=== PATIENT | male | born 1935 | race Caucasian/White ===

== ENCOUNTER 2019-08-01 12:02 | Inpatient (IN) ==
[2019-08-01] MEDS ORDERED: *HR* HYDROcodone/Acet 5/325 mg TABLET PO PRN (15:58)
[2019-08-01] MEDS ORDERED: Acetaminophen 325 MG TABLET PO PRN (15:58)
[2019-08-01] MEDS ORDERED: *HR* Dextrose 50 % in Water (Vial) 50 ML VIAL IVP PRN (16:26)
[2019-08-01] MEDS ORDERED: Dextrose Gel 15 GM/37.5 ML TUBE PO PRN ×2 (16:26)
[2019-08-01] MEDS ORDERED: D5% in Water 1,000 ML IVC PRN (16:26)
[2019-08-01] MEDS ORDERED: INSULIN LISPRO 100 UNIT SQ SCH (16:30)
[2019-08-01] MEDS ORDERED: Insulin LISPRO 300 UNITS/3 ML VIAL SQ SCH (17:00)
[2019-08-01] MEDS: Insulin LISPRO 300 UNITS/3 ML VIAL SQ SCH ×2 (17:49)
[2019-08-01] MEDS: Insulin DETEMIR 100 UNIT/ML X5UNITS SQ SCH (22:07)
[2019-08-02 06:20] LABS: Basophils # 0.1 K/mcL (0.0-0.2); Basophils % 0.3 %; Eosinophils # 0.2 K/mcL (0.0-0.6); Eosinophils % 0.9 %; Hematocrit 26.1 % (37.5-50.1); Hemoglobin 8.8 g/dL (12.9-16.9); Lymphocytes # 0.9 K/mcL (0.6-4.6); Mean Corpuscular HGB Conc 33.7 g/dL (31.6-35.5); Mean Corpuscular Hemoglobin 29.7 pg (28.0-33.3); Mean Corpuscular Volume 88.2 fL (83.0-100.0); Monocytes # 0.9 K/mcL (0.0-1.3); Monocytes % 5.1 %; Neutrophils # 15.8 K/mcL (1.6-8.9); Platelet Count 437 K/mcL (140-400); Red Blood Count 2.96 M/mcL (4.19-5.50); Red Cell Distribution Width 13.8 % (11.5-14.5); Segmented Neutrophils % 87.7 %
[2019-08-02 06:28] LABS: INR 1.1; Prothrombin Time 12.3 Seconds (9.4-12.1)
[2019-08-02 06:31] LABS: Activated Partial Thrombo Time 26.2 Seconds (26.0-36.0)
[2019-08-02] MEDS: *HR* Enoxaparin 40 MG/0.4 ML SYRINGE SQ SCH (06:32)
[2019-08-02 06:43] LABS: Calcium 8.3 mg/dL (8.6-10.3); Potassium 4.4 mEq/L (3.5-5.1)
[2019-08-02] MEDS: Insulin LISPRO 300 UNITS/3 ML VIAL SQ SCH ×6 (08:52→16:33)
[2019-08-02] MEDS: Sennosides/Docusate Sodium TABLET PO PRN (08:53)
[2019-08-02] MEDS: amLODIPine 5 MG TABLET PO SCH (08:53)
[2019-08-02] MEDS: Aspirin Enteric Coated 81 MG Tablet PO SCH (08:53)
[2019-08-02] MEDS: Insulin DETEMIR 100 UNIT/ML X5UNITS SQ SCH ×2 (08:54→20:05)
[2019-08-02] MEDS: polyethylene glycoL 3350 17 GM POWD.PACK PO PRN (08:55)
[2019-08-02] MEDS ORDERED: Aspirin Enteric Coated 325 MG Tablet PO SCH (09:00)
[2019-08-03] MEDS: *HR* Enoxaparin 40 MG/0.4 ML SYRINGE SQ SCH (05:23)
[2019-08-03] MEDS: Insulin LISPRO 300 UNITS/3 ML VIAL SQ SCH ×6 (08:27→17:05)
[2019-08-03] MEDS: Insulin DETEMIR 100 UNIT/ML X5UNITS SQ SCH ×2 (08:27→20:44)
[2019-08-03] MEDS: amLODIPine 5 MG TABLET PO SCH (08:28)
[2019-08-03] MEDS: Aspirin Enteric Coated 81 MG Tablet PO SCH (08:28)
[2019-08-04] MEDS: *HR* Enoxaparin 40 MG/0.4 ML SYRINGE SQ SCH (05:42)
[2019-08-04] MEDS: Aspirin Enteric Coated 81 MG Tablet PO SCH (08:24)
[2019-08-04] MEDS: amLODIPine 5 MG TABLET PO SCH (08:24)
[2019-08-04] MEDS: Insulin LISPRO 300 UNITS/3 ML VIAL SQ SCH ×6 (08:24→16:23)
[2019-08-04] MEDS: Insulin DETEMIR 100 UNIT/ML X5UNITS SQ SCH ×2 (11:22→20:59)
[2019-08-05] MEDS: *HR* Enoxaparin 40 MG/0.4 ML SYRINGE SQ SCH (06:28)
[2019-08-05] MEDS: Insulin LISPRO 300 UNITS/3 ML VIAL SQ SCH ×6 (09:23→18:05)
[2019-08-05] MEDS: Insulin DETEMIR 100 UNIT/ML X5UNITS SQ SCH ×2 (09:28→20:22)
[2019-08-05] MEDS: Aspirin Enteric Coated 81 MG Tablet PO SCH (09:28)
[2019-08-05] MEDS: amLODIPine 5 MG TABLET PO SCH (09:28)
[2019-08-06] MEDS: *HR* Enoxaparin 40 MG/0.4 ML SYRINGE SQ SCH (05:26)
[2019-08-06 07:42] LABS: Hematocrit 26.7 % (37.5-50.1); Mean Corpuscular HGB Conc 33.7 g/dL (31.6-35.5); Mean Corpuscular Hemoglobin 29.5 pg (28.0-33.3); Mean Corpuscular Volume 87.5 fL (83.0-100.0); Mean Platelet Volume 9.6 fL (9.4-12.4); Platelet Count 600 K/mcL (140-400); Red Blood Count 3.05 M/mcL (4.19-5.50); Red Cell Distribution Width 13.4 % (11.5-14.5); White Blood Count 11.4 K/mcL (4.3-11.1)
[2019-08-06 09:13] LABS: BUN/Creatinine Ratio 27 (6-26); Blood Urea Nitrogen 34 mg/dL (8-23); Carbon Dioxide 25 mEq/L (23-29); Chloride 105 mEq/L (98-107); Glucose 95 mg/dL (70-105); Osmolality,Calculated 293 (280-300); Sodium 138 mEq/L (136-145); eGFR For African Americans > 60 (> 60); eGFR For Non-African Americans 55 (> 60)
[2019-08-06] MEDS: Insulin LISPRO 300 UNITS/3 ML VIAL SQ SCH ×6 (09:24→17:05)
[2019-08-06] MEDS: amLODIPine 5 MG TABLET PO SCH (09:25)
[2019-08-06] MEDS: Aspirin Enteric Coated 81 MG Tablet PO SCH (09:25)
[2019-08-06] MEDS: Insulin DETEMIR 100 UNIT/ML X5UNITS SQ SCH ×2 (09:26→20:22)
[2019-08-06 09:50] LABS: Calcium 8.3 mg/dL (8.6-10.3)
[2019-08-06] MEDS: Sennosides/Docusate Sodium TABLET PO PRN (23:04)
[2019-08-06] MEDS: polyethylene glycoL 3350 17 GM POWD.PACK PO PRN (23:05)
[2019-08-07] MEDS: *HR* Enoxaparin 40 MG/0.4 ML SYRINGE SQ SCH (05:33)
[2019-08-07] MEDS: amLODIPine 5 MG TABLET PO SCH (08:38)
[2019-08-07] MEDS: Aspirin Enteric Coated 81 MG Tablet PO SCH (08:38)
[2019-08-07] MEDS: Insulin LISPRO 300 UNITS/3 ML VIAL SQ SCH ×6 (08:39→16:58)
[2019-08-07] MEDS: Insulin DETEMIR 100 UNIT/ML X5UNITS SQ SCH ×2 (09:31→21:13)
[2019-08-08] MEDS: *HR* Enoxaparin 40 MG/0.4 ML SYRINGE SQ SCH (06:45)
[2019-08-08 08:12] LABS: Basophils % 0.3 %; Eosinophils # 0.3 K/mcL (0.0-0.6); Eosinophils % 3.8 %; Hemoglobin 8.8 g/dL (12.9-16.9); Immature Granulocytes % 0.3 % (0-4); Lymphocytes % 11.3 %; Mean Corpuscular HGB Conc 32.6 g/dL (31.6-35.5); Mean Corpuscular Volume 89.1 fL (83.0-100.0); Mean Platelet Volume 9.2 fL (9.4-12.4); Monocytes # 0.6 K/mcL (0.0-1.3); Monocytes % 7.3 %; Neutrophils # 6.7 K/mcL (1.6-8.9); Platelet Count 632 K/mcL (140-400); Red Blood Count 3.03 M/mcL (4.19-5.50); Red Cell Distribution Width 13.9 % (11.5-14.5); White Blood Count 8.7 K/mcL (4.3-11.1)
[2019-08-08 08:28] LABS: BUN/Creatinine Ratio 28 (6-26); Blood Urea Nitrogen 37 mg/dL (8-23); Calcium 8.2 mg/dL (8.6-10.3); Carbon Dioxide 26 mEq/L (23-29); Chloride 103 mEq/L (98-107); Glucose 115 mg/dL (70-105); Osmolality,Calculated 290 (280-300); Potassium 4.2 mEq/L (3.5-5.1); Sodium 135 mEq/L (136-145); eGFR For African Americans > 60 (> 60); eGFR For Non-African Americans 53 (> 60)
[2019-08-08] MEDS ORDERED: Bisacodyl 10 MG RECTAL SUPPOSITORY RC PRN (09:44)
[2019-08-08] MEDS: Insulin DETEMIR 100 UNIT/ML X5UNITS SQ SCH ×2 (09:46→20:19)
[2019-08-08] MEDS: Aspirin Enteric Coated 81 MG Tablet PO SCH (09:47)
[2019-08-08] MEDS: amLODIPine 5 MG TABLET PO SCH (09:47)
[2019-08-08] MEDS: Insulin LISPRO 300 UNITS/3 ML VIAL SQ SCH ×6 (10:31→17:16)
[2019-08-09] MEDS: *HR* Enoxaparin 40 MG/0.4 ML SYRINGE SQ SCH (06:46)
[2019-08-09] MEDS: Insulin LISPRO 300 UNITS/3 ML VIAL SQ SCH ×6 (09:09→17:29)
[2019-08-09] MEDS: Aspirin Enteric Coated 81 MG Tablet PO SCH (09:10)
[2019-08-09] MEDS: amLODIPine 5 MG TABLET PO SCH (09:10)
[2019-08-09] MEDS: Insulin DETEMIR 100 UNIT/ML X5UNITS SQ SCH ×2 (09:11→20:48)
[2019-08-10] MEDS: *HR* Enoxaparin 40 MG/0.4 ML SYRINGE SQ SCH (05:47)
[2019-08-10] MEDS: polyethylene glycoL 3350 17 GM POWD.PACK PO PRN (10:53)
[2019-08-10] MEDS: Sennosides/Docusate Sodium TABLET PO PRN (10:53)
[2019-08-10] MEDS: Aspirin Enteric Coated 81 MG Tablet PO SCH (10:53)
[2019-08-10] MEDS: amLODIPine 5 MG TABLET PO SCH (10:53)
[2019-08-10] MEDS: Insulin DETEMIR 100 UNIT/ML X5UNITS SQ SCH ×2 (10:54→20:07)
[2019-08-10] MEDS: Insulin LISPRO 300 UNITS/3 ML VIAL SQ SCH ×6 (10:54→17:09)
[2019-08-11] MEDS: *HR* Enoxaparin 40 MG/0.4 ML SYRINGE SQ SCH (05:37)
[2019-08-11] MEDS: Insulin DETEMIR 100 UNIT/ML X5UNITS SQ SCH ×2 (08:32→20:11)
[2019-08-11] MEDS: amLODIPine 5 MG TABLET PO SCH (08:33)
[2019-08-11] MEDS: Insulin LISPRO 300 UNITS/3 ML VIAL SQ SCH ×6 (08:33→16:47)
[2019-08-11] MEDS: Aspirin Enteric Coated 81 MG Tablet PO SCH (08:33)
[2019-08-12] MEDS: *HR* Enoxaparin 40 MG/0.4 ML SYRINGE SQ SCH (06:15)
[2019-08-12 08:39] LABS: Basophils # 0.1 K/mcL (0.0-0.2); Basophils % 0.6 %; Eosinophils # 0.2 K/mcL (0.0-0.6); Eosinophils % 2.4 %; Hematocrit 27.6 % (37.5-50.1); Hemoglobin 8.9 g/dL (12.9-16.9); Immature Granulocytes % 0.4 % (0-4); Lymphocytes % 10.4 %; Mean Corpuscular HGB Conc 32.2 g/dL (31.6-35.5); Mean Corpuscular Volume 89.9 fL (83.0-100.0); Mean Platelet Volume 9.2 fL (9.4-12.4); Monocytes # 0.4 K/mcL (0.0-1.3); Monocytes % 4.6 %; Neutrophils # 7.6 K/mcL (1.6-8.9); Platelet Count 591 K/mcL (140-400); Red Blood Count 3.07 M/mcL (4.19-5.50); Red Cell Distribution Width 14.3 % (11.5-14.5); Segmented Neutrophils % 81.6 %; White Blood Count 9.3 K/mcL (4.3-11.1)
[2019-08-12 08:54] LABS: Calcium 8.2 mg/dL (8.6-10.3); Potassium 4.4 mEq/L (3.5-5.1)
[2019-08-12] MEDS: amLODIPine 5 MG TABLET PO SCH (09:05)
[2019-08-12] MEDS: Aspirin Enteric Coated 81 MG Tablet PO SCH (09:05)
[2019-08-12] MEDS: Insulin LISPRO 300 UNITS/3 ML VIAL SQ SCH ×6 (09:06→17:14)
[2019-08-12] MEDS: Insulin DETEMIR 100 UNIT/ML X5UNITS SQ SCH ×2 (09:06→20:45)
[2019-08-13] MEDS: *HR* Enoxaparin 40 MG/0.4 ML SYRINGE SQ SCH (05:32)
[2019-08-13] MEDS: amLODIPine 5 MG TABLET PO SCH (08:39)
[2019-08-13] MEDS: Insulin DETEMIR 100 UNIT/ML X5UNITS SQ SCH ×2 (08:40→20:41)
[2019-08-13] MEDS: Insulin LISPRO 300 UNITS/3 ML VIAL SQ SCH ×6 (08:40→16:56)
[2019-08-13] MEDS: Aspirin Enteric Coated 81 MG Tablet PO SCH (08:40)
[2019-08-14] MEDS: *HR* Enoxaparin 40 MG/0.4 ML SYRINGE SQ SCH (05:42)
[2019-08-14] MEDS: hydrOXYzine pamoate 25 MG CAPSULE PO PRN (08:46)
[2019-08-14] MEDS: Aspirin Enteric Coated 81 MG Tablet PO SCH (08:46)
[2019-08-14] MEDS: amLODIPine 5 MG TABLET PO SCH (08:46)
[2019-08-14] MEDS: Insulin LISPRO 300 UNITS/3 ML VIAL SQ SCH ×6 (08:47→18:07)
[2019-08-14] MEDS: Insulin DETEMIR 100 UNIT/ML X5UNITS SQ SCH ×2 (08:48→21:55)
[2019-08-15] MEDS: *HR* Enoxaparin 40 MG/0.4 ML SYRINGE SQ SCH (07:00)
[2019-08-15] MEDS: amLODIPine 5 MG TABLET PO SCH (08:29)
[2019-08-15] MEDS: Aspirin Enteric Coated 81 MG Tablet PO SCH (08:30)
[2019-08-15] MEDS: Insulin LISPRO 300 UNITS/3 ML VIAL SQ SCH ×6 (08:30→17:01)
[2019-08-15] MEDS: hydrOXYzine pamoate 25 MG CAPSULE PO PRN (08:30)
[2019-08-15] MEDS: Insulin DETEMIR 100 UNIT/ML X5UNITS SQ SCH ×2 (09:51→20:35)
[2019-08-16] MEDS: *HR* Enoxaparin 40 MG/0.4 ML SYRINGE SQ SCH (05:49)
[2019-08-16] MEDS: amLODIPine 5 MG TABLET PO SCH (08:13)
[2019-08-16] MEDS: Insulin LISPRO 300 UNITS/3 ML VIAL SQ SCH ×6 (08:13→17:08)
[2019-08-16] MEDS: Aspirin Enteric Coated 81 MG Tablet PO SCH (08:13)
[2019-08-16] MEDS: Insulin DETEMIR 100 UNIT/ML X5UNITS SQ SCH ×2 (08:50→21:09)
[2019-08-17] MEDS: *HR* Enoxaparin 40 MG/0.4 ML SYRINGE SQ SCH (05:35)
[2019-08-17] MEDS: Aspirin Enteric Coated 81 MG Tablet PO SCH (08:09)
[2019-08-17] MEDS: amLODIPine 5 MG TABLET PO SCH (08:09)
[2019-08-17] MEDS: Insulin LISPRO 300 UNITS/3 ML VIAL SQ SCH ×6 (08:09→17:44)
[2019-08-17] MEDS: Insulin DETEMIR 100 UNIT/ML X5UNITS SQ SCH ×2 (08:44→19:48)
[2019-08-18] MEDS: *HR* Enoxaparin 40 MG/0.4 ML SYRINGE SQ SCH (05:33)
[2019-08-18] MEDS: Aspirin Enteric Coated 81 MG Tablet PO SCH (08:28)
[2019-08-18] MEDS: Insulin LISPRO 300 UNITS/3 ML VIAL SQ SCH ×6 (08:29→15:59)
[2019-08-18] MEDS: Insulin DETEMIR 100 UNIT/ML X5UNITS SQ SCH ×2 (08:29→20:36)
[2019-08-18] MEDS: amLODIPine 5 MG TABLET PO SCH (08:29)
[2019-08-18 15:22] LABS: Bilirubin,Urine Negative (Negative); Blood,Urine Small (Negative); Clarity,Urine Cloudy (Clear); Color,Urine Yellow (Yellow); Glucose,Urine (UA) 250 mg/dL (Normal); Ketones,Urine Negative (Negative); Leukocyte Esterase,Urine Moderate (Negative); Nitrite,Urine Negative (Negative); PH,Urine 5.5 pH Units (5.0-8.0); Protein,Urine 100 mg/dL (Neg-Trace); Urobilinogen,Urine Normal (Normal)
[2019-08-18 15:46] LABS: Bacteria,Urine Many per hpf (None-Few); Mucus,Urine Many per lpf (None-Few); Squamous Epithelial Cell,Urine Few per lpf (None-Few); WBC,Urine TNTC per hpf (0-3)
[2019-08-18] MEDS: hydrOXYzine pamoate 25 MG CAPSULE PO PRN (20:37)
[2019-08-19] MEDS: *HR* Enoxaparin 40 MG/0.4 ML SYRINGE SQ SCH (06:26)
[2019-08-19] MEDS: Insulin LISPRO 300 UNITS/3 ML VIAL SQ SCH ×6 (08:22→17:19)
[2019-08-19] MEDS: Aspirin Enteric Coated 81 MG Tablet PO SCH (08:23)
[2019-08-19] MEDS: Insulin DETEMIR 100 UNIT/ML X5UNITS SQ SCH ×2 (08:24→20:18)
[2019-08-19] MEDS: hydrOXYzine pamoate 25 MG CAPSULE PO PRN (08:24)
[2019-08-19] MEDS: amLODIPine 5 MG TABLET PO SCH (08:24)
[2019-08-20] MEDS: *HR* Enoxaparin 40 MG/0.4 ML SYRINGE SQ SCH (07:11)
[2019-08-20] MEDS: Aspirin Enteric Coated 81 MG Tablet PO SCH (08:27)
[2019-08-20] MEDS: amLODIPine 5 MG TABLET PO SCH (08:28)
[2019-08-20] MEDS: hydrOXYzine pamoate 25 MG CAPSULE PO PRN ×2 (08:28→21:32)
[2019-08-20] MEDS: Insulin DETEMIR 100 UNIT/ML X5UNITS SQ SCH ×2 (08:29→21:32)
[2019-08-20] MEDS: Insulin LISPRO 300 UNITS/3 ML VIAL SQ SCH ×6 (08:30→17:31)
[2019-08-21] MEDS: *HR* Enoxaparin 40 MG/0.4 ML SYRINGE SQ SCH (06:38)
[2019-08-21] MEDS: amLODIPine 5 MG TABLET PO SCH (08:15)
[2019-08-21] MEDS: Aspirin Enteric Coated 81 MG Tablet PO SCH (08:16)
[2019-08-21] MEDS: Insulin DETEMIR 100 UNIT/ML X5UNITS SQ SCH ×2 (08:18→20:31)
[2019-08-21] MEDS: Insulin LISPRO 300 UNITS/3 ML VIAL SQ SCH ×6 (08:19→17:05)
[2019-08-21 11:02] LABS: Hematocrit 28.7 % (37.5-50.1); Hemoglobin 9.5 g/dL (12.9-16.9); Mean Corpuscular HGB Conc 33.1 g/dL (31.6-35.5); Mean Corpuscular Volume 90.5 fL (83.0-100.0); Platelet Count 432 K/mcL (140-400); Red Blood Count 3.17 M/mcL (4.19-5.50); Red Cell Distribution Width 14.7 % (11.5-14.5); White Blood Count 7.9 K/mcL (4.3-11.1)
[2019-08-21 11:28] LABS: Calcium 8.5 mg/dL (8.6-10.3); Potassium 4.6 mEq/L (3.5-5.1)
[2019-08-21] MEDS: levoFLOXacin 500 MG TABLET PO SCH (11:59)
[2019-08-21] MEDS: hydrOXYzine pamoate 25 MG CAPSULE PO PRN (20:31)
[2019-08-22] MEDS: *HR* Enoxaparin 40 MG/0.4 ML SYRINGE SQ SCH (06:46)
[2019-08-22] MEDS: Insulin LISPRO 300 UNITS/3 ML VIAL SQ SCH ×6 (07:37→16:35)
[2019-08-22] MEDS: levoFLOXacin 500 MG TABLET PO SCH (08:29)
[2019-08-22] MEDS: Aspirin Enteric Coated 81 MG Tablet PO SCH (08:29)
[2019-08-22] MEDS: amLODIPine 5 MG TABLET PO SCH (08:29)
[2019-08-22] MEDS: Insulin DETEMIR 100 UNIT/ML X5UNITS SQ SCH ×2 (08:32→20:06)
[2019-08-23] MEDS: *HR* Enoxaparin 40 MG/0.4 ML SYRINGE SQ SCH (05:39)
[2019-08-23] MEDS: levoFLOXacin 250 MG TABLET PO SCH (08:58)
[2019-08-23] MEDS: amLODIPine 5 MG TABLET PO SCH (08:59)
[2019-08-23] MEDS: Insulin DETEMIR 100 UNIT/ML X5UNITS SQ SCH ×2 (09:00→20:48)
[2019-08-23] MEDS: Aspirin Enteric Coated 81 MG Tablet PO SCH (09:00)
[2019-08-23] MEDS: Insulin LISPRO 300 UNITS/3 ML VIAL SQ SCH ×6 (09:03→16:44)
[2019-08-24] MEDS: *HR* Enoxaparin 40 MG/0.4 ML SYRINGE SQ SCH (05:53)
[2019-08-24] MEDS: amLODIPine 5 MG TABLET PO SCH (07:56)
[2019-08-24] MEDS: Aspirin Enteric Coated 81 MG Tablet PO SCH (07:57)
[2019-08-24] MEDS: levoFLOXacin 250 MG TABLET PO SCH (07:57)
[2019-08-24] MEDS: Insulin LISPRO 300 UNITS/3 ML VIAL SQ SCH ×6 (07:59→16:19)
[2019-08-24] MEDS: Insulin DETEMIR 100 UNIT/ML X5UNITS SQ SCH ×2 (07:59→20:47)
[2019-08-25] MEDS: *HR* Enoxaparin 40 MG/0.4 ML SYRINGE SQ SCH (06:26)
[2019-08-25] MEDS: Insulin DETEMIR 100 UNIT/ML X5UNITS SQ SCH ×2 (08:27→20:05)
[2019-08-25] MEDS: levoFLOXacin 250 MG TABLET PO SCH (08:28)
[2019-08-25] MEDS: Insulin LISPRO 300 UNITS/3 ML VIAL SQ SCH ×6 (08:28→17:05)
[2019-08-25] MEDS: Aspirin Enteric Coated 81 MG Tablet PO SCH (08:29)
[2019-08-25] MEDS: amLODIPine 5 MG TABLET PO SCH (08:29)
[2019-08-26] MEDS: *HR* Enoxaparin 40 MG/0.4 ML SYRINGE SQ SCH (06:38)
[2019-08-26] MEDS: Aspirin Enteric Coated 81 MG Tablet PO SCH (08:09)
[2019-08-26] MEDS: amLODIPine 5 MG TABLET PO SCH (08:11)
[2019-08-26] MEDS: Insulin LISPRO 300 UNITS/3 ML VIAL SQ SCH ×6 (08:12→17:51)
[2019-08-26] MEDS: Insulin DETEMIR 100 UNIT/ML X5UNITS SQ SCH ×2 (08:44→21:29)
[2019-08-27] MEDS: *HR* Enoxaparin 40 MG/0.4 ML SYRINGE SQ SCH (05:08)
[2019-08-27 06:40] VITALS: BP 125/68
[2019-08-27] MEDS: amLODIPine 5 MG TABLET PO SCH (07:36)
[2019-08-27] MEDS: Aspirin Enteric Coated 81 MG Tablet PO SCH (07:36)
[2019-08-27] MEDS: Insulin LISPRO 300 UNITS/3 ML VIAL SQ SCH ×2 (09:21)
[2019-08-27] MEDS: Insulin DETEMIR 100 UNIT/ML X5UNITS SQ SCH (09:22)
== END 2019-08-27 11:56 | disposition home health service (06) | DRG 559 ==
LOC: INPPIK 17:05
PROVIDERS: ADMIT Family Medicine; ATTEND Family Medicine

== ENCOUNTER 2019-11-21 13:46 | Inpatient (IN) ==
[2019-11-21] MEDS: Triamcinolone Acet 0.1% CRM 15 GM TUBE TP SCH (20:24)
[2019-11-21] MEDS: Chlorhexidine Rinse 15 ML MOUTHWASH MM SCH (20:25)
[2019-11-21] MEDS ORDERED: Insulin DETEMIR 100 UNIT/ML per UNIT SQ ONE (21:00)
[2019-11-22 05:12] LABS: Basophils # 0.1 K/mcL (0.0-0.2); Basophils % 0.8 %; Eosinophils # 0.1 K/mcL (0.0-0.6); Eosinophils % 1.1 %; Hematocrit 32.9 % (37.5-50.1); Hemoglobin 10.7 g/dL (12.9-16.9); Immature Granulocytes % 0.2 % (0-4); Lymphocytes % 16.3 %; Mean Corpuscular HGB Conc 32.5 g/dL (31.6-35.5); Mean Corpuscular Hemoglobin 27.1 pg (28.0-33.3); Mean Corpuscular Volume 83.3 fL (83.0-100.0); Mean Platelet Volume 8.7 fL (9.4-12.4); Monocytes # 0.7 K/mcL (0.0-1.3); Monocytes % 6.1 %; Neutrophils # 9.2 K/mcL (1.6-8.9); Platelet Count 605 K/mcL (140-400); Red Blood Count 3.95 M/mcL (4.19-5.50); Red Cell Distribution Width 14.4 % (11.5-14.5); Segmented Neutrophils % 75.5 %; White Blood Count 12.2 K/mcL (4.3-11.1)
[2019-11-22 05:29] LABS: Activated Partial Thrombo Time 31.4 Seconds (26.0-36.0); INR 1.1; Prothrombin Time 12.2 Seconds (9.4-12.1)
[2019-11-22 05:33] LABS: Albumin 3.1 g/dL (3.5-5.7); Albumin/Globulin Ratio 0.7 (1.1-2.2); Bilirubin,Total 0.3 mg/dL (0.3-1.0); Globulin 4.3 g/dL (2.4-3.5); Potassium 4.4 mEq/L (3.5-5.1); Total Protein 7.4 g/dL (6.4-8.9)
[2019-11-22] MEDS: amLODIPine 5 MG TABLET PO SCH (09:16)
[2019-11-22] MEDS: Chlorhexidine Rinse 15 ML MOUTHWASH MM SCH ×2 (09:17→20:44)
[2019-11-22] MEDS: Insulin DETEMIR 100 UNIT/ML X5UNITS SQ SCH ×2 (09:17→20:34)
[2019-11-22] MEDS: Aspirin Enteric Coated 81 MG Tablet PO SCH (09:17)
[2019-11-22] MEDS: Triamcinolone Acet 0.1% CRM 15 GM TUBE TP SCH ×2 (09:19→20:47)
[2019-11-22] MEDS: Clotrimazole 1% CRM 15 GM TUBE TP SCH (09:42)
[2019-11-22] MEDS ORDERED: D5% in Water 1,000 ML IVC PRN (11:19)
[2019-11-22] MEDS ORDERED: *HR* Dextrose 50 % in Water (Vial) 50 ML VIAL IVP PRN (11:19)
[2019-11-22] MEDS ORDERED: Dextrose Gel 15 GM/37.5 ML TUBE PO PRN ×2 (11:19)
[2019-11-22] MEDS: Insulin LISPRO 300 UNITS/3 ML VIAL SQ SCH ×6 (12:14→20:45)
[2019-11-23] MEDS: Insulin LISPRO 300 UNITS/3 ML VIAL SQ SCH ×7 (09:14→21:51)
[2019-11-23] MEDS: Chlorhexidine Rinse 15 ML MOUTHWASH MM SCH ×2 (09:15→21:45)
[2019-11-23] MEDS: Fluconazole 150 MG TABLET PO SCH (09:15)
[2019-11-23] MEDS: amLODIPine 5 MG TABLET PO SCH (09:15)
[2019-11-23] MEDS: Insulin DETEMIR 100 UNIT/ML X5UNITS SQ SCH ×2 (09:15→21:48)
[2019-11-23] MEDS: Aspirin Enteric Coated 81 MG Tablet PO SCH (09:15)
[2019-11-23] MEDS: Clotrimazole 1% CRM 15 GM TUBE TP SCH (09:17)
[2019-11-23] MEDS: Triamcinolone Acet 0.1% CRM 15 GM TUBE TP SCH ×2 (09:17→21:51)
[2019-11-24] MEDS: Insulin DETEMIR 100 UNIT/ML X5UNITS SQ SCH ×2 (09:22→20:09)
[2019-11-24] MEDS: Chlorhexidine Rinse 15 ML MOUTHWASH MM SCH ×2 (09:22→20:09)
[2019-11-24] MEDS: Insulin LISPRO 300 UNITS/3 ML VIAL SQ SCH ×7 (09:22→20:10)
[2019-11-24] MEDS: Aspirin Enteric Coated 81 MG Tablet PO SCH (09:24)
[2019-11-24] MEDS: amLODIPine 5 MG TABLET PO SCH (09:24)
[2019-11-24] MEDS: Triamcinolone Acet 0.1% CRM 15 GM TUBE TP SCH ×2 (09:30→20:35)
[2019-11-24] MEDS: Clotrimazole 1% CRM 15 GM TUBE TP SCH (09:30)
[2019-11-24] MEDS: Cefdinir 300 MG CAPSULE PO SCH (20:09)
[2019-11-25] MEDS: Insulin DETEMIR 100 UNIT/ML X5UNITS SQ SCH ×2 (08:51→22:07)
[2019-11-25] MEDS: Cefdinir 300 MG CAPSULE PO SCH ×2 (08:51→22:05)
[2019-11-25] MEDS: Chlorhexidine Rinse 15 ML MOUTHWASH MM SCH ×2 (08:51→22:07)
[2019-11-25] MEDS: amLODIPine 5 MG TABLET PO SCH (08:51)
[2019-11-25] MEDS: Aspirin Enteric Coated 81 MG Tablet PO SCH (08:51)
[2019-11-25] MEDS: Acetaminophen 325 MG TABLET PO PRN (08:55)
[2019-11-25] MEDS: Insulin LISPRO 300 UNITS/3 ML VIAL SQ SCH ×4 (08:56→22:08)
[2019-11-25] MEDS: Clotrimazole 1% CRM 15 GM TUBE TP SCH (09:06)
[2019-11-25] MEDS: Triamcinolone Acet 0.1% CRM 15 GM TUBE TP SCH ×2 (09:06→22:06)
[2019-11-26] MEDS: Insulin LISPRO 300 UNITS/3 ML VIAL SQ SCH ×4 (08:57→20:51)
[2019-11-26] MEDS: Cefdinir 300 MG CAPSULE PO SCH ×2 (08:58→20:50)
[2019-11-26] MEDS: amLODIPine 5 MG TABLET PO SCH (08:58)
[2019-11-26] MEDS: Insulin DETEMIR 100 UNIT/ML X5UNITS SQ SCH ×2 (08:58→20:51)
[2019-11-26] MEDS: Aspirin Enteric Coated 81 MG Tablet PO SCH (08:58)
[2019-11-26] MEDS: Acetaminophen 325 MG TABLET PO PRN (08:58)
[2019-11-26] MEDS: Chlorhexidine Rinse 15 ML MOUTHWASH MM SCH ×2 (08:59→20:50)
[2019-11-26] MEDS: Clotrimazole 1% CRM 15 GM TUBE TP SCH (08:59)
[2019-11-26] MEDS: Triamcinolone Acet 0.1% CRM 15 GM TUBE TP SCH ×2 (08:59→21:11)
[2019-11-26] MEDS: Fluconazole 150 MG TABLET PO SCH (09:03)
[2019-11-27] MEDS: Insulin LISPRO 300 UNITS/3 ML VIAL SQ SCH ×4 (08:59→21:29)
[2019-11-27] MEDS: Insulin DETEMIR 100 UNIT/ML X5UNITS SQ SCH ×2 (08:59→21:28)
[2019-11-27] MEDS: Chlorhexidine Rinse 15 ML MOUTHWASH MM SCH ×2 (09:00→21:33)
[2019-11-27] MEDS: amLODIPine 5 MG TABLET PO SCH (09:00)
[2019-11-27] MEDS: Cefdinir 300 MG CAPSULE PO SCH ×2 (09:00→21:28)
[2019-11-27] MEDS: Aspirin Enteric Coated 81 MG Tablet PO SCH (09:00)
[2019-11-27] MEDS: Triamcinolone Acet 0.1% CRM 15 GM TUBE TP SCH ×2 (09:01→21:38)
[2019-11-27] MEDS: Clotrimazole 1% CRM 15 GM TUBE TP SCH (09:01)
[2019-11-28] MEDS: Insulin LISPRO 300 UNITS/3 ML VIAL SQ SCH ×4 (08:07→22:07)
[2019-11-28] MEDS: Cefdinir 300 MG CAPSULE PO SCH ×2 (09:24→22:04)
[2019-11-28] MEDS: amLODIPine 5 MG TABLET PO SCH (09:24)
[2019-11-28] MEDS: Aspirin Enteric Coated 81 MG Tablet PO SCH (09:24)
[2019-11-28] MEDS: Insulin DETEMIR 100 UNIT/ML X5UNITS SQ SCH ×2 (09:24→22:04)
[2019-11-28] MEDS: Chlorhexidine Rinse 15 ML MOUTHWASH MM SCH ×2 (11:16→22:03)
[2019-11-28] MEDS: Clotrimazole 1% CRM 15 GM TUBE TP SCH (11:17)
[2019-11-28] MEDS: Triamcinolone Acet 0.1% CRM 15 GM TUBE TP SCH ×2 (11:17→22:09)
[2019-11-29] MEDS: Insulin LISPRO 300 UNITS/3 ML VIAL SQ SCH ×4 (07:29→21:52)
[2019-11-29] MEDS ORDERED: tiZANidine 4 MG TABLET PO PRN (07:36)
[2019-11-29] MEDS: Cefdinir 300 MG CAPSULE PO SCH ×2 (09:12→21:50)
[2019-11-29] MEDS: Aspirin Enteric Coated 81 MG Tablet PO SCH (09:12)
[2019-11-29] MEDS: amLODIPine 5 MG TABLET PO SCH (09:12)
[2019-11-29] MEDS: Acetaminophen 325 MG TABLET PO PRN (09:12)
[2019-11-29] MEDS: Chlorhexidine Rinse 15 ML MOUTHWASH MM SCH ×2 (09:13→21:51)
[2019-11-29] MEDS: Insulin DETEMIR 100 UNIT/ML X5UNITS SQ SCH (09:13)
[2019-11-29] MEDS: Fluconazole 150 MG TABLET PO SCH (09:13)
[2019-11-29] MEDS: Triamcinolone Acet 0.1% CRM 15 GM TUBE TP SCH ×2 (09:21→22:00)
[2019-11-29] MEDS: Clotrimazole 1% CRM 15 GM TUBE TP SCH (09:21)
[2019-11-30 06:13] LABS: Basophils # 0.2 K/mcL (0.0-0.2); Basophils % 1.4 %; Eosinophils # 0.6 K/mcL (0.0-0.6); Hematocrit 33.6 % (37.5-50.1); Hemoglobin 10.9 g/dL (12.9-16.9); Immature Granulocytes % 0.3 % (0-4); Lymphocytes # 2.3 K/mcL (0.6-4.6); Lymphocytes % 19.4 %; Mean Corpuscular HGB Conc 32.4 g/dL (31.6-35.5); Mean Corpuscular Hemoglobin 26.8 pg (28.0-33.3); Mean Corpuscular Volume 82.8 fL (83.0-100.0); Mean Platelet Volume 9.6 fL (9.4-12.4); Monocytes # 0.9 K/mcL (0.0-1.3); Monocytes % 7.6 %; Neutrophils # 7.8 K/mcL (1.6-8.9); Platelet Count 690 K/mcL (140-400); Red Blood Count 4.06 M/mcL (4.19-5.50); Red Cell Distribution Width 14.3 % (11.5-14.5); Segmented Neutrophils % 66.3 %; White Blood Count 11.7 K/mcL (4.3-11.1)
[2019-11-30 06:35] LABS: BUN/Creatinine Ratio 26 (6-26); Blood Urea Nitrogen 35 mg/dL (8-23); Calcium 8.8 mg/dL (8.6-10.3); Carbon Dioxide 27 mEq/L (23-29); Chloride 102 mEq/L (98-107); Glucose 153 mg/dL (70-105); Osmolality,Calculated 297 (280-300); Potassium 3.9 mEq/L (3.5-5.1); Sodium 138 mEq/L (136-145); eGFR For African Americans > 60 (> 60); eGFR For Non-African Americans 50 (> 60)
[2019-11-30 07:13] LABS: Platelet Estimate Increased (Normal)
[2019-11-30] MEDS: Insulin LISPRO 300 UNITS/3 ML VIAL SQ SCH ×4 (08:59→20:52)
[2019-11-30] MEDS ORDERED: Insulin DETEMIR 100 UNIT/ML X5UNITS SQ SCH (09:00)
[2019-11-30] MEDS: Triamcinolone Acet 0.1% CRM 15 GM TUBE TP SCH ×2 (09:00→20:17)
[2019-11-30] MEDS: Aspirin Enteric Coated 81 MG Tablet PO SCH (09:00)
[2019-11-30] MEDS: amLODIPine 5 MG TABLET PO SCH (09:00)
[2019-11-30] MEDS: Chlorhexidine Rinse 15 ML MOUTHWASH MM SCH ×2 (09:00→21:02)
[2019-11-30] MEDS: Clotrimazole 1% CRM 15 GM TUBE TP SCH (10:04)
[2019-12-01] MEDS ORDERED: polyethylene glycoL 3350 17 GM POWD.PACK PO PRN (03:47)
[2019-12-01] MEDS: Chlorhexidine Rinse 15 ML MOUTHWASH MM SCH ×2 (10:22→21:49)
[2019-12-01] MEDS: Insulin DETEMIR 100 UNIT/ML X5UNITS SQ SCH (10:22)
[2019-12-01] MEDS: Insulin LISPRO 300 UNITS/3 ML VIAL SQ SCH ×4 (10:23→21:49)
[2019-12-01] MEDS: amLODIPine 5 MG TABLET PO SCH (10:23)
[2019-12-01] MEDS: Aspirin Enteric Coated 81 MG Tablet PO SCH (10:23)
[2019-12-01] MEDS: Triamcinolone Acet 0.1% CRM 15 GM TUBE TP SCH ×2 (10:27→21:51)
[2019-12-01] MEDS: Clotrimazole 1% CRM 15 GM TUBE TP SCH (10:28)
[2019-12-02] MEDS: Acetaminophen 325 MG TABLET PO PRN (08:32)
[2019-12-02] MEDS: Triamcinolone Acet 0.1% CRM 15 GM TUBE TP SCH ×2 (08:33→20:40)
[2019-12-02] MEDS: Aspirin Enteric Coated 81 MG Tablet PO SCH (08:33)
[2019-12-02] MEDS: amLODIPine 5 MG TABLET PO SCH (08:33)
[2019-12-02] MEDS: Insulin DETEMIR 100 UNIT/ML X5UNITS SQ SCH (08:33)
[2019-12-02] MEDS: Clotrimazole 1% CRM 15 GM TUBE TP SCH (08:33)
[2019-12-02] MEDS: Chlorhexidine Rinse 15 ML MOUTHWASH MM SCH ×2 (08:34→20:40)
[2019-12-02] MEDS: Insulin LISPRO 300 UNITS/3 ML VIAL SQ SCH ×4 (08:34→19:58)
[2019-12-02] MEDS: Fluconazole 150 MG TABLET PO SCH (08:38)
[2019-12-02] MEDS: tiZANidine 4 MG TABLET PO SCH ×2 (17:22→20:39)
[2019-12-03] MEDS: tiZANidine 4 MG TABLET PO SCH ×3 (04:51→21:16)
[2019-12-03] MEDS: Triamcinolone Acet 0.1% CRM 15 GM TUBE TP SCH ×2 (09:13→21:17)
[2019-12-03] MEDS: amLODIPine 5 MG TABLET PO SCH (09:14)
[2019-12-03] MEDS: Clotrimazole 1% CRM 15 GM TUBE TP SCH (09:14)
[2019-12-03] MEDS: Aspirin Enteric Coated 81 MG Tablet PO SCH (09:14)
[2019-12-03] MEDS: Insulin DETEMIR 100 UNIT/ML X5UNITS SQ SCH (09:14)
[2019-12-03] MEDS: Insulin LISPRO 300 UNITS/3 ML VIAL SQ SCH ×4 (09:15→21:17)
[2019-12-03] MEDS: Chlorhexidine Rinse 15 ML MOUTHWASH MM SCH ×2 (09:24→21:17)
[2019-12-04] MEDS: tiZANidine 4 MG TABLET PO SCH ×3 (04:52→20:58)
[2019-12-04] MEDS: Insulin LISPRO 300 UNITS/3 ML VIAL SQ SCH ×4 (08:16→20:58)
[2019-12-04] MEDS: Aspirin Enteric Coated 81 MG Tablet PO SCH (08:17)
[2019-12-04] MEDS: amLODIPine 5 MG TABLET PO SCH (08:17)
[2019-12-04] MEDS: Chlorhexidine Rinse 15 ML MOUTHWASH MM SCH ×2 (08:18→20:58)
[2019-12-04] MEDS: Clotrimazole 1% CRM 15 GM TUBE TP SCH (08:20)
[2019-12-04] MEDS: Triamcinolone Acet 0.1% CRM 15 GM TUBE TP SCH (08:20)
[2019-12-04] MEDS: Insulin DETEMIR 100 UNIT/ML X5UNITS SQ SCH (09:04)
[2019-12-04 09:14] LABS: Basophils # 0.1 K/mcL (0.0-0.2); Basophils % 1.1 %; Eosinophils # 0.5 K/mcL (0.0-0.6); Eosinophils % 5.3 %; Hemoglobin 11.3 g/dL (12.9-16.9); Immature Granulocytes % 0.3 % (0-4); Lymphocytes # 1.7 K/mcL (0.6-4.6); Lymphocytes % 16.2 %; Mean Corpuscular HGB Conc 32.3 g/dL (31.6-35.5); Mean Corpuscular Hemoglobin 27.2 pg (28.0-33.3); Mean Corpuscular Volume 84.1 fL (83.0-100.0); Mean Platelet Volume 9.6 fL (9.4-12.4); Monocytes # 0.6 K/mcL (0.0-1.3); Monocytes % 6.1 %; Neutrophils # 7.3 K/mcL (1.6-8.9); Platelet Count 577 K/mcL (140-400); Red Blood Count 4.16 M/mcL (4.19-5.50); Red Cell Distribution Width 14.2 % (11.5-14.5); White Blood Count 10.3 K/mcL (4.3-11.1)
[2019-12-04 09:25] LABS: BUN/Creatinine Ratio 24 (6-26); Blood Urea Nitrogen 32 mg/dL (8-23); Calcium 8.9 mg/dL (8.6-10.3); Carbon Dioxide 24 mEq/L (23-29); Chloride 104 mEq/L (98-107); Glucose 150 mg/dL (70-105); Osmolality,Calculated 296 (280-300); Potassium 3.9 mEq/L (3.5-5.1); Sodium 138 mEq/L (136-145); eGFR For African Americans > 60 (> 60); eGFR For Non-African Americans 51 (> 60)
[2019-12-05] MEDS: Triamcinolone Acet 0.1% CRM 15 GM TUBE TP SCH ×3 (00:54→20:29)
[2019-12-05] MEDS: tiZANidine 4 MG TABLET PO SCH ×3 (06:13→20:28)
[2019-12-05] MEDS: Aspirin Enteric Coated 81 MG Tablet PO SCH (08:19)
[2019-12-05] MEDS: amLODIPine 5 MG TABLET PO SCH (08:19)
[2019-12-05] MEDS: Fluconazole 150 MG TABLET PO SCH (08:19)
[2019-12-05] MEDS: Clotrimazole 1% CRM 15 GM TUBE TP SCH (08:19)
[2019-12-05] MEDS: Chlorhexidine Rinse 15 ML MOUTHWASH MM SCH ×2 (08:19→20:28)
[2019-12-05] MEDS: Insulin LISPRO 300 UNITS/3 ML VIAL SQ SCH ×4 (08:20→20:29)
[2019-12-05] MEDS: Insulin DETEMIR 100 UNIT/ML X5UNITS SQ SCH (08:21)
[2019-12-06] MEDS: tiZANidine 4 MG TABLET PO SCH ×3 (05:39→21:27)
[2019-12-06] MEDS: Chlorhexidine Rinse 15 ML MOUTHWASH MM SCH ×2 (07:53→21:24)
[2019-12-06] MEDS: amLODIPine 5 MG TABLET PO SCH (07:53)
[2019-12-06] MEDS: Triamcinolone Acet 0.1% CRM 15 GM TUBE TP SCH ×2 (07:54→21:27)
[2019-12-06] MEDS: Clotrimazole 1% CRM 15 GM TUBE TP SCH (07:54)
[2019-12-06] MEDS: Insulin LISPRO 300 UNITS/3 ML VIAL SQ SCH ×4 (07:54→21:24)
[2019-12-06] MEDS: Aspirin Enteric Coated 81 MG Tablet PO SCH (07:54)
[2019-12-06] MEDS: Insulin DETEMIR 100 UNIT/ML X5UNITS SQ SCH ×2 (08:57→21:29)
[2019-12-06 21:46] LABS: Bilirubin,Urine Negative (Negative); Blood,Urine Negative (Negative); Clarity,Urine Slightly Cloudy (Clear); Glucose,Urine (UA) Normal (Normal); Ketones,Urine Negative (Negative); Leukocyte Esterase,Urine Moderate (Negative); Nitrite,Urine Negative (Negative); PH,Urine 5.5 pH Units (5.0-8.0); Protein,Urine Trace mg/dL (Neg-Trace); Specific Gravity,Urine 1.015 (1.010-1.025); Urobilinogen,Urine Normal (Normal)
[2019-12-06 22:23] LABS: Color,Urine Light Yellow (Yellow)
[2019-12-06 22:24] LABS: WBC,Urine 30-50 per hpf (0-3)
[2019-12-07] MEDS: tiZANidine 4 MG TABLET PO SCH ×3 (05:33→20:42)
[2019-12-07] MEDS: Insulin LISPRO 300 UNITS/3 ML VIAL SQ SCH ×4 (08:44→20:44)
[2019-12-07] MEDS: Aspirin Enteric Coated 81 MG Tablet PO SCH (08:45)
[2019-12-07] MEDS: amLODIPine 5 MG TABLET PO SCH (08:45)
[2019-12-07] MEDS: Chlorhexidine Rinse 15 ML MOUTHWASH MM SCH ×2 (08:45→20:58)
[2019-12-07] MEDS: Insulin DETEMIR 100 UNIT/ML X5UNITS SQ SCH ×2 (08:46→20:43)
[2019-12-07] MEDS: Clotrimazole 1% CRM 15 GM TUBE TP SCH (08:46)
[2019-12-07] MEDS: Triamcinolone Acet 0.1% CRM 15 GM TUBE TP SCH ×2 (08:46→20:42)
[2019-12-07 11:06] LABS: Basophils # 0.1 K/mcL (0.0-0.2); Basophils % 0.5 %; Eosinophils # 0.2 K/mcL (0.0-0.6); Eosinophils % 1.6 %; Hematocrit 29.3 % (37.5-50.1); Hemoglobin 9.7 g/dL (12.9-16.9); Immature Granulocytes % 0.4 % (0-4); Lymphocytes # 1.4 K/mcL (0.6-4.6); Lymphocytes % 9.8 %; Mean Corpuscular HGB Conc 33.1 g/dL (31.6-35.5); Mean Corpuscular Hemoglobin 27.3 pg (28.0-33.3); Mean Corpuscular Volume 82.5 fL (83.0-100.0); Mean Platelet Volume 9.1 fL (9.4-12.4); Monocytes % 7.8 %; Platelet Count 439 K/mcL (140-400); Red Blood Count 3.55 M/mcL (4.19-5.50); Red Cell Distribution Width 14.3 % (11.5-14.5); Segmented Neutrophils % 79.9 %; White Blood Count 14.7 K/mcL (4.3-11.1)
[2019-12-07 11:22] LABS: Calcium 8.7 mg/dL (8.6-10.3); Potassium 4.5 mEq/L (3.5-5.1)
[2019-12-07 11:26] LABS: Monocytes # 1.2 K/mcL (0.0-1.3); Neutrophils # 11.8 K/mcL (1.6-8.9)
[2019-12-08] MEDS: tiZANidine 4 MG TABLET PO SCH ×3 (05:44→20:15)
[2019-12-08] MEDS: Triamcinolone Acet 0.1% CRM 15 GM TUBE TP SCH ×2 (09:44→20:22)
[2019-12-08] MEDS: Chlorhexidine Rinse 15 ML MOUTHWASH MM SCH ×2 (09:44→20:15)
[2019-12-08] MEDS: amLODIPine 5 MG TABLET PO SCH (09:44)
[2019-12-08] MEDS: Insulin DETEMIR 100 UNIT/ML X5UNITS SQ SCH ×2 (09:45→20:15)
[2019-12-08] MEDS: Aspirin Enteric Coated 81 MG Tablet PO SCH (09:45)
[2019-12-08] MEDS: Insulin LISPRO 300 UNITS/3 ML VIAL SQ SCH ×4 (09:45→20:18)
[2019-12-08] MEDS: Clotrimazole 1% CRM 15 GM TUBE TP SCH (09:58)
[2019-12-08 21:15] LABS: Adenovirus Not Detected (Not Detect); Bordetella Pertussis Not Detected (Not Detect); Chlamydophila pneumoniae Not Detected (Not Detect); Coronavirus 229E Not Detected (Not Detect); Coronavirus HKU1 Not Detected (Not Detect); Coronavirus NL63 Not Detected (Not Detect); Coronavirus OC43 Not Detected (Not Detect); Human Metapneumovirus Not Detected (Not Detect); Human Rhinovirus/Enterovirus Not Detected (Not Detect); Influenza A Subtype 2009 H1 Not Detected (Not Detect); Influenza B Not Detected (Not Detect); Mycoplasma pneumoniae Not Detected (Not Detect); Parainfluenza Virus 1 Not Detected (Not Detect); Parainfluenza Virus 2 Not Detected (Not Detect); Parainfluenza Virus 3 Not Detected (Not Detect); Parainfluenza Virus 4 Not Detected (Not Detect); Respiratory Syncytial Virus Not Detected (Not Detect); SARS-CoV-2 Not Detected (Not Detect)
[2019-12-09] MEDS: tiZANidine 4 MG TABLET PO SCH ×3 (04:55→20:02)
[2019-12-09] MEDS: Insulin DETEMIR 100 UNIT/ML X5UNITS SQ SCH ×2 (09:23→20:03)
[2019-12-09] MEDS: Chlorhexidine Rinse 15 ML MOUTHWASH MM SCH ×2 (09:24→20:02)
[2019-12-09] MEDS: Clotrimazole 1% CRM 15 GM TUBE TP SCH (09:28)
[2019-12-09] MEDS: Insulin LISPRO 300 UNITS/3 ML VIAL SQ SCH ×4 (09:29→20:03)
[2019-12-09] MEDS: Aspirin Enteric Coated 81 MG Tablet PO SCH (09:30)
[2019-12-09] MEDS: amLODIPine 5 MG TABLET PO SCH (09:30)
[2019-12-09] MEDS: Triamcinolone Acet 0.1% CRM 15 GM TUBE TP SCH ×2 (09:45→20:18)
[2019-12-10] MEDS: tiZANidine 4 MG TABLET PO SCH ×3 (04:59→21:25)
[2019-12-10] MEDS: Insulin LISPRO 300 UNITS/3 ML VIAL SQ SCH ×4 (08:06→21:26)
[2019-12-10] MEDS: Aspirin Enteric Coated 81 MG Tablet PO SCH (08:25)
[2019-12-10] MEDS: Insulin DETEMIR 100 UNIT/ML X5UNITS SQ SCH ×2 (08:26→21:24)
[2019-12-10] MEDS: amLODIPine 5 MG TABLET PO SCH (08:26)
[2019-12-10] MEDS: Triamcinolone Acet 0.1% CRM 15 GM TUBE TP SCH ×2 (08:26→21:25)
[2019-12-10] MEDS: Chlorhexidine Rinse 15 ML MOUTHWASH MM SCH ×2 (08:26→21:24)
[2019-12-10] MEDS: Clotrimazole 1% CRM 15 GM TUBE TP SCH (08:26)
[2019-12-10] MEDS: Cefdinir 300 MG CAPSULE PO SCH ×2 (11:25→21:24)
[2019-12-11] MEDS: tiZANidine 4 MG TABLET PO SCH ×3 (05:39→20:54)
[2019-12-11] MEDS: Insulin LISPRO 300 UNITS/3 ML VIAL SQ SCH ×4 (09:42→21:27)
[2019-12-11] MEDS: Triamcinolone Acet 0.1% CRM 15 GM TUBE TP SCH ×2 (09:46→20:55)
[2019-12-11] MEDS: amLODIPine 5 MG TABLET PO SCH (09:46)
[2019-12-11] MEDS: Cefdinir 300 MG CAPSULE PO SCH (09:46)
[2019-12-11] MEDS: Clotrimazole 1% CRM 15 GM TUBE TP SCH (09:46)
[2019-12-11] MEDS: Chlorhexidine Rinse 15 ML MOUTHWASH MM SCH ×2 (09:46→21:26)
[2019-12-11] MEDS: Insulin DETEMIR 100 UNIT/ML X5UNITS SQ SCH ×2 (09:47→21:26)
[2019-12-11] MEDS: Aspirin Enteric Coated 81 MG Tablet PO SCH (09:47)
[2019-12-11] MEDS: 0.9 % Sodium Chloride 1,000 ML IVC SCH ×2 (13:39→21:16)
[2019-12-11 14:32] LABS: Basophils # 0.1 K/mcL (0.0-0.2); Basophils % 0.6 %; Eosinophils # 0.5 K/mcL (0.0-0.6); Eosinophils % 3.7 %; Hematocrit 30.6 % (37.5-50.1); Immature Granulocytes % 0.4 % (0-4); Lymphocytes # 1.3 K/mcL (0.6-4.6); Lymphocytes % 9.5 %; Mean Corpuscular HGB Conc 32.7 g/dL (31.6-35.5); Mean Corpuscular Hemoglobin 26.7 pg (28.0-33.3); Mean Corpuscular Volume 81.6 fL (83.0-100.0); Mean Platelet Volume 9.9 fL (9.4-12.4); Monocytes % 6.9 %; Platelet Count 481 K/mcL (140-400); Red Blood Count 3.75 M/mcL (4.19-5.50); Red Cell Distribution Width 14.4 % (11.5-14.5); Segmented Neutrophils % 78.9 %; White Blood Count 13.9 K/mcL (4.3-11.1)
[2019-12-11 14:44] LABS: Calcium 8.8 mg/dL (8.6-10.3); Potassium 4.2 mEq/L (3.5-5.1)
[2019-12-11] MEDS: Cefepime HCl 1,000 MG in 0.9 % Sodium Chloride Mini Bag 100 ML IVPB SCH (17:18)
[2019-12-12] MEDS: Cefepime HCl 1,000 MG in 0.9 % Sodium Chloride Mini Bag 100 ML IVPB SCH ×2 (05:06→17:54)
[2019-12-12] MEDS: 0.9 % Sodium Chloride 1,000 ML IVC SCH ×3 (05:07→22:40)
[2019-12-12] MEDS: tiZANidine 4 MG TABLET PO SCH ×3 (05:08→21:04)
[2019-12-12] MEDS: Chlorhexidine Rinse 15 ML MOUTHWASH MM SCH ×2 (09:00→22:43)
[2019-12-12] MEDS: Insulin LISPRO 300 UNITS/3 ML VIAL SQ SCH ×4 (09:00→21:06)
[2019-12-12] MEDS: Aspirin Enteric Coated 81 MG Tablet PO SCH (09:01)
[2019-12-12] MEDS: amLODIPine 5 MG TABLET PO SCH (09:01)
[2019-12-12] MEDS: Clotrimazole 1% CRM 15 GM TUBE TP SCH (09:02)
[2019-12-12] MEDS: Triamcinolone Acet 0.1% CRM 15 GM TUBE TP SCH ×2 (09:02→22:43)
[2019-12-12] MEDS: Insulin DETEMIR 100 UNIT/ML X5UNITS SQ SCH ×2 (09:22→22:44)
[2019-12-13] MEDS: tiZANidine 4 MG TABLET PO SCH ×3 (05:16→21:19)
[2019-12-13] MEDS: Cefepime HCl 1,000 MG in 0.9 % Sodium Chloride Mini Bag 100 ML IVPB SCH ×2 (05:19→17:46)
[2019-12-13] MEDS: 0.9 % Sodium Chloride 1,000 ML IVC SCH (05:22)
[2019-12-13 07:07] LABS: Basophils # 0.1 K/mcL (0.0-0.2); Basophils % 0.8 %; Eosinophils # 0.5 K/mcL (0.0-0.6); Eosinophils % 4.4 %; Hematocrit 25.5 % (37.5-50.1); Hemoglobin 8.3 g/dL (12.9-16.9); Immature Granulocytes % 0.3 % (0-4); Lymphocytes # 1.4 K/mcL (0.6-4.6); Lymphocytes % 12.1 %; Mean Corpuscular HGB Conc 32.5 g/dL (31.6-35.5); Mean Corpuscular Hemoglobin 26.9 pg (28.0-33.3); Mean Corpuscular Volume 82.8 fL (83.0-100.0); Mean Platelet Volume 9.9 fL (9.4-12.4); Monocytes # 0.9 K/mcL (0.0-1.3); Neutrophils # 8.4 K/mcL (1.6-8.9); Platelet Count 433 K/mcL (140-400); Red Blood Count 3.08 M/mcL (4.19-5.50); Red Cell Distribution Width 14.6 % (11.5-14.5); Segmented Neutrophils % 74.4 %; White Blood Count 11.3 K/mcL (4.3-11.1)
[2019-12-13 07:30] LABS: BUN/Creatinine Ratio 27 (6-26); Blood Urea Nitrogen 32 mg/dL (8-23); Calcium 8.3 mg/dL (8.6-10.3); Carbon Dioxide 23 mEq/L (23-29); Chloride 107 mEq/L (98-107); Glucose 127 mg/dL (70-105); Osmolality,Calculated 294 (280-300); Sodium 138 mEq/L (136-145); eGFR For African Americans > 60 (> 60); eGFR For Non-African Americans 58 (> 60)
[2019-12-13] MEDS: Chlorhexidine Rinse 15 ML MOUTHWASH MM SCH ×2 (09:14→21:27)
[2019-12-13] MEDS: amLODIPine 5 MG TABLET PO SCH (09:14)
[2019-12-13] MEDS: Aspirin Enteric Coated 81 MG Tablet PO SCH (09:14)
[2019-12-13] MEDS: Insulin DETEMIR 100 UNIT/ML X5UNITS SQ SCH ×2 (09:15→21:19)
[2019-12-13] MEDS: Insulin LISPRO 300 UNITS/3 ML VIAL SQ SCH ×4 (09:15→21:20)
[2019-12-13] MEDS: Clotrimazole 1% CRM 15 GM TUBE TP SCH (09:28)
[2019-12-13] MEDS: Triamcinolone Acet 0.1% CRM 15 GM TUBE TP SCH ×2 (09:29→21:18)
[2019-12-14] MEDS: tiZANidine 4 MG TABLET PO SCH ×2 (04:56→12:36)
[2019-12-14] MEDS: Cefepime HCl 1,000 MG in 0.9 % Sodium Chloride Mini Bag 100 ML IVPB SCH ×2 (05:01→17:33)
[2019-12-14] MEDS: Insulin LISPRO 300 UNITS/3 ML VIAL SQ SCH ×3 (08:09→16:00)
[2019-12-14] MEDS: Aspirin Enteric Coated 81 MG Tablet PO SCH (09:29)
[2019-12-14] MEDS: amLODIPine 5 MG TABLET PO SCH (09:29)
[2019-12-14] MEDS: Chlorhexidine Rinse 15 ML MOUTHWASH MM SCH (09:29)
[2019-12-14] MEDS: Insulin DETEMIR 100 UNIT/ML X5UNITS SQ SCH (09:39)
[2019-12-14] MEDS: Triamcinolone Acet 0.1% CRM 15 GM TUBE TP SCH (10:00)
[2019-12-14] MEDS: Clotrimazole 1% CRM 15 GM TUBE TP SCH (10:01)
[2019-12-14 19:05] VITALS: BP 127/68
== END 2019-12-14 19:13 | disposition other institution (70) | DRG 57 ==
LOC: INPPIK 17:42
PROVIDERS: ADMIT Family Medicine; ATTEND Family Medicine